=== PATIENT | female | born 1995 | race Caucasian/White ===

== ENCOUNTER 2023-11-18 20:12 | Emergency (ER) | payer SELFPAY ==
[~2023-11-18] VITALS: Ht 157.5 cm; Wt 67.8 kg
[2023-11-18 20:17] VITALS: BP 122/78; RESP 18; TEMP 98.2; O2SAT 100
[2023-11-18 20:19] VITALS: PULSE 97; O2SAT 100
[2023-11-18] MEDS: ACETAMINOPHEN 325MG TABLET PO ONE (23:34)
[2023-11-18] MEDS: KETOROLAC 30MG/ML VIAL IM ONE (23:35)
[2023-11-18] MEDS: METOCLOPRAMIDE HCL 10MG TABLET PO ONE (23:35)
[2023-11-19] MEDS ORDERED: NAPR220C61 MT (00:42)
[2023-11-19] MEDS ORDERED: ACET-2708 MT (00:42)
== END 2023-11-19 01:27 | disposition home or self-care (01) ==
LOC: ER 20:12
DX: R51.9 Headache, unspecified (principal); R42 Dizziness and giddiness
CPT/HCPCS: 99283; 81025; 96372; J8597; J1885